=== PATIENT | male | born 1965 | race Caucasian/White ===

== ENCOUNTER 2023-12-13 18:23 | Emergency (ER) | payer OTHER, SELFPAY ==
[2023-12-13] VITALS (11 sets, daily range): BP systolic 114–161; BP diastolic 65–80; PULSE 86–123; RESP 16–22; TEMP 37.1–37.7; O2SAT 93–98; BMI 19.8
[2023-12-13 19:17] LABS: Influenza A - CEPHEID Flu A POSITIVE (NEGATIVE); Influenza B - CEPHEID Flu B NEGATIVE (NEGATIVE); Respiratory Syncytial Virus Negative (Negative)
[2023-12-13 19:21] LABS: COVID-19 CEPHEID 4-PLEX PCR POSITIVE (Negative)
--- NOTE | 2023-12-13 19:28 | ED.URI ---
HPI - URI/Sore Throat General Chief Complaint: Upper Respiratory Symptoms Stated Complaint: flu like symptoms Time Seen by Provider: 12/13/23 19:10 Source: patient Mode of arrival: Ambulatory History of Present Illness HPI Narrative: Patient is a 58-year-old male with known fentanyl use presenting today with body aches fevers and chills. It has been ongoing for the last 3 days. He has been trying to drink fluids. Denies nausea or vomiting. He has some cough and shortness of breath. No abdominal pain nausea or vomiting. His mouth is noted to be dry he generally feels weak and fatigued. He admits to using fentanyl prior to arrival Related Data Allergies Allergy/AdvReac Type Severity Reaction Status Date / Time No Known Drug Allergies Allergy Verified 12/13/23 18:32 Patient History Social History Smoking Status: Current every day smoker Smoking Status: Current every day smoker alcohol intake frequency: 0-2 drinks per day Substance Use Type: opiates Exam Initial Vital Signs Initial Vital Signs: Vital Signs Temperature 98.8 F 12/13/23 18:26 Pulse Rate 112 H 12/13/23 18:26 Respiratory Rate 20 12/13/23 18:26 Blood Pressure 150/80 H 12/13/23 18:26 Pulse Oximetry 98 12/13/23 18:26 Oxygen Delivery Method Room Air 12/13/23 18:26 GENERAL: Alert disheveled, dirty 58-year-old male thin HEENT: Head atraumatic,EOMI, pupils reactive, face symmetric, dry mucous membranes CARDIOVASCULAR: Tachycardic no murmur RESPIRATORY: Breath sounds equal bilaterally, no wheezes rales or rhonchi. ABDOMEN: Soft, nontender. Normoactive bowel sounds all 4 quadrants. No guarding or rebound. EXTREMITIES: Normal range of motion, no clubbing or edema. Neurovascularly intact NEUROLOGICAL: Alert and oriented x4. SKIN: Warm, dry, no laceration, no petechiae, no rashes or lesions. Course Orders Ordered: ED Orders 12/13/23 18:34 Covid-19 + FLU A/B + RSV - PCR Stat 12/13/23 19:37 Chest [XR chest 1V] Stat 12/13/23 20:00 CBC Auto Diff [Complete Blood Count AUTO DIFF] Stat CMP [Comprehensive Metabolic Panel] Stat Lactate (Lactic Acid) Stat Discontinued Medications Sodium Chloride (Normal Saline 0.9%) 1,000 mls @ 1,000 mls/hr IV BOLUS ONE Stop: 12/13/23 20:30 Last Infusion: 12/13/23 21:39 Dose: Infused Documented By: Admin: 12/13/23 19:58 Dose: 1,000 mls/hr Documented By: DELVIN Sodium Chloride (Normal Saline 0.9%) 1,000 mls @ 1,000 mls/hr IV BOLUS ONE Stop: 12/13/23 22:16 Last Infusion: 12/13/23 22:36 Dose: Infused Documented By: Admin: 12/13/23 21:39 Dose: 1,000 mls/hr Documented By: DELVIN Ketorolac Tromethamine (Ketorolac 30 Mg/Ml Vial) 15 mg IV NOW ONE Stop: 12/13/23 19:32 Last Admin: 12/13/23 19:58 Dose: 15 mg Documented By: DELVIN Ondansetron HCl (Ondansetron 4 Mg/2 Ml Inj) 4 mg IV NOW ONE Stop: 12/13/23 21:32 Last Admin: 12/13/23 21:39 Dose: 4 mg Documented By: DELVIN Ondansetron HCl (Ondansetron 4 Mg/2 Ml Inj) 4 mg IV NOW ONE Stop: 12/13/23 22:47 Last Admin: 12/13/23 22:49 Dose: 4 mg Documented By: DELVIN Vital Signs Vital signs: Vital Signs - 8 hr 12/13/23 18:26 12/13/23 19:42 12/13/23 20:00 Temperature 98.8 F Pulse Rate 112 H 122 H 123 H Respiratory Rate 20 Blood Pressure 150/80 H Pulse Oximetry 98 97 97 Oxygen Delivery Method Room Air 12/13/23 20:28 12/13/23 20:30 12/13/23 21:00 Temperature 99.8 F H Pulse Rate 102 H 95 H Respiratory Rate Blood Pressure Pulse Oximetry 95 97 Oxygen Delivery Method 12/13/23 21:30 12/13/23 21:34 12/13/23 21:34 Temperature 99.8 F H Pulse Rate 86 Respiratory Rate 16 Blood Pressure 136/71 Pulse Oximetry 96 94 Oxygen Delivery Method Room Air 12/13/23 22:00 12/13/23 22:00 12/13/23 22:30 Temperature Pulse Rate 96 H Respiratory Rate Blood Pressure 161/76 H 114/65 Pulse Oximetry 95 Oxygen Delivery Method 12/13/23 22:30 12/13/23 23:00 12/13/23 23:00 Temperature Pulse Rate 94 H 86 Respiratory Rate 20 22 Blood Pressure 126/74 Pulse Oximetry 96 93 Oxygen Delivery Method Room Air Room Air MDM - URI/Sore Throat Lab Data 12/13/23 20:00 12/13/23 20:00 Labs: Lab Results 12/13/23 12/13/23 12/13/23 Range/Units 18:34 20:00 22:28 WBC 10.9 (4.5-11.0) X10^3/uL RBC 4.59 (4.5-5.9) X10^6/uL Hgb 13.8 (13.5-17.5) g/dL Hct 39.6 L (41-53) % MCV 86.2 (80-100) fL MCH 30.0 (26-34) PG MCHC 34.8 (30-36) % RDW 12.7 (11.6-14.8) % Plt Count 210 (150-400) X10^3/uL Neut % (Auto) 82.1 H (50-75) % Lymph % (Auto) 7.7 L (25-40) % [place] % (Auto) 10.0 (3-14) % Eos % (Auto) 0.0 L (2-4) % Baso % (Auto) 0.2 (0-2) % Neut # (Auto) 8900 H (2589-1590) /uL Lymph # (Auto) 800 L (7204-7217) /uL [place] # (Auto) 1100 H (0-900) /uL Eos # (Auto) 0 (0-450) /uL Baso # (Auto) 0 (0-100) /uL Sodium 130 L (137-145) mmol/L Potassium 3.6 (3.4-5.1) mmol/L Chloride 94 L (98-107) mmol/L Carbon Dioxide 28 (22-32) mmol/L BUN 21 H (9-20) mg/dL Creatinine 0.73 (0.66-1.25) mg/dL Estimated GFR > 60 (>60) mL/min BUN/Creatinine Ratio 28.8 H (6-22) Glucose 105 H (70-100) mg/dL Lactate 2.8 H 2.0 (0.7-2.1) mmol/L Calcium 8.6 (8.4-10.2) mg/dL Total Bilirubin 0.8 (0.2-1.3) mg/dL AST 34 (17-59) IU/L ALT 18 (<50) IU/L Alkaline Phosphatase 86 (38-126) U/L Total Protein 7.0 (6.3-8.2) g/dL Albumin 3.8 (3.5-5.0) g/dL Globulin 3.2 (1.7-4.1) g/dL Albumin/Globulin Ratio 1.2 (1.0-2.8) SARS-CoV-2 (PCR) Positive H (Negative) Influenza A (RT-PCR) Flu a positive H (NEGATIVE) Influenza B (RT-PCR) Flu b negative (NEGATIVE) RSV (PCR) Negative (Negative) Imaging Data Chest x-ray: Radiologist's Impression: PROCEDURE: XR CHEST 1V INDICATIONS: cough TECHNIQUE: One view of the chest was acquired. COMPARISON: None. FINDINGS: Surgical changes and devices: None. Lungs and pleura: Lungs are hyperinflated, hyperlucent, but with clear. No pleural effusions or pneumothorax. Mediastinum: Mediastinal contours appear normal. Heart size is normal. Bones and chest wall: No suspicious bony lesions. Overlying soft tissues appear unremarkable. IMPRESSION: Changes suggestive of COPD without acute consolidation. Dictated by: Farzaneh Reyonlds M.D. on 12/13/2023 at 20:21 MDM Narrative Medical decision making narrative: Patient 58-year-old male history of fentanyl use presenting today with generalized body aches. He is found to have both COVID and influenza a. He was noted to be tachycardic with low-grade fever but never hypotensive. He was clinically dry. Blood work reviewed leukocytosis 10.9, sodium 130, potassium 3.6 bicarb 28, chloride 94, BUN 21, creatinine 0.73, glucose 105, lactate 2.8 with repeat 2.0 Chest x-ray reviewed COPD without acute a cut consolidation Patient vomited all over the floor. Blood work does not show any evidence of sepsis. His lactate mildly elevated but did improve with fluids. No need for antibiotics at this time he has 2 viruses both influenza and COVID. He has not hypoxic. He was given some fluids to drink unclear if he did. He was not feeling well, I suspect some withdrawal symptoms 23:15 patient ripped everything off and walked out prior to any sort of discharge instructions Discharge Plan Departure Patient Disposition: Elopement Clinical Impression: Eloped from emergency department, COVID-19, Influenza Referrals: Michelle Palencia MD [Primary Care Provider] -
--- NOTE | 2023-12-13 19:37 | DI.RAD.S_ITS ---
PROCEDURE: XR CHEST 1V INDICATIONS: cough TECHNIQUE: One view of the chest was acquired. COMPARISON: None. FINDINGS: Surgical changes and devices: None. Lungs and pleura: Lungs are hyperinflated, hyperlucent, but with clear. No pleural effusions or pneumothorax. Mediastinum: Mediastinal contours appear normal. Heart size is normal. Bones and chest wall: No suspicious bony lesions. Overlying soft tissues appear unremarkable. IMPRESSION: Changes suggestive of COPD without acute consolidation. Dictated by: Farzaneh Reynolds M.D. on 12/13/2023 at 20:21 Approved by: Farzaneh Reynolds M.D. on 12/13/2023 at 20:21
[2023-12-13] MEDS: KETOROLAC 30 MG/ML VIAL 15 MG IV (19:58)
[2023-12-13] MEDS: SODIUM CHLORIDE 0.9% 1,000 ML 1000 ML IV ×2 (19:58→21:39)
[2023-12-13 20:13] LABS: Add Manual Diff / Slide Review NO; Basophils Absolute Auto 0 /uL (0-100); Basophils Percent Auto 0.2 % (0-2); Eosinophils Absolute Auto 0 /uL (0-450); Hematocrit 39.6 % (41-53); Hemoglobin 13.8 g/dL (13.5-17.5); Lymphocytes Absolute Auto 800 /uL (1100-4500); Lymphocytes Percent Auto 7.7 % (25-40); Mean Corpuscular HGB Conc 34.8 % (30-36); Mean Corpuscular Volume 86.2 fL (80-100); Monocytes Absolute Auto 1100 /uL (0-900); Neutrophils Absolute Auto 8900 /uL (1500-7000); Neutrophils Percent Auto 82.1 % (50-75); Platelet Count 210 X10^3/uL (150-400); Red Blood Cell Count 4.59 X10^6/uL (4.5-5.9); Red Cell Distribution Width 12.7 % (11.6-14.8); White Blood Cell Count 10.9 X10^3/uL (4.5-11.0)
[2023-12-13 20:22] LABS: Lactate (Lactic Acid) 2.8 mmol/L (0.7-2.1)
[2023-12-13 20:23] LABS: Alanine Aminotransferase 18 IU/L (<50); Albumin 3.8 g/dL (3.5-5.0); Albumin Globulin Ratio 1.2 (1.0-2.8); Alkaline Phosphatase 86 U/L (38-126); Aspartate Aminotransferase 34 IU/L (17-59); BUN Creatinine Ratio 28.8 (6-22); Bilirubin Total 0.8 mg/dL (0.2-1.3); Blood Urea Nitrogen 21 mg/dL (9-20); Calcium 8.6 mg/dL (8.4-10.2); Carbon Dioxide 28 mmol/L (22-32); Chloride 94 mmol/L (98-107); Estimated Glomerular Filt Rate > 60 mL/min (>60); Globulin 3.2 g/dL (1.7-4.1); Glucose 105 mg/dL (70-100); HEMOLYSIS 49 (0-50); Potassium 3.6 mmol/L (3.4-5.1); Sodium 130 mmol/L (137-145)
[2023-12-13] MEDS: ONDANSETRON 4 MG/2 ML INJ IV ×2 (21:39→22:49)
[2023-12-13 21:49] LABS: Reflexed Lactate in 2 Hours Y
--- NOTE | 2023-12-13 23:20 | PC.NURSE ---
Patient independently exited bed and began walking out to ER lobby, IV still in placed and bedside playground monitor wires dragging behind patient as he left ED. Staff redirected patient back into room 5 where he was resting prior. Patient states he wants to leave because he isnt feeling any better. IV was removed by this RN. Patient earlier stated that he came here tonight from [place], this RN asked if he had a ride and patient states that he did not know. This RN offered for patient to rest here and allow staff to continue treatment and can assist with calling for a ride when ready for discharge. Patient refused and collected his belongings and walked out towards lobby and ER front doors.
== END 2023-12-13 23:20 | disposition left against medical advice (07) ==
PROVIDERS: Emergency Provider Emergency Medicine; Family Provider Family Medicine; PCP Family Medicine
DX: U07.1 COVID-19 (principal); J10.1 Influenza due to other identified influenza virus with other respiratory manifestations; R00.0 Tachycardia, unspecified
CPT/HCPCS: 0241U; 36415; 71045; 80053; 83605; 85025; 96361; 96374; 96375; 96376; 99284; J1885; J2405